=== PATIENT | female | born 1995 | race Caucasian/White ===

== ENCOUNTER 2022-10-21 08:00 | Outpatient (CLI) | payer OTHER ==
[2022-10-21 15:35] LABS: BILIRUBIN,URINE NEGATIVE (NEGATIVE); GLUCOSE, URINE (UA) NEGATIVE (NEGATIVE); KETONES,URINE (UA) 15 mg/dL (NEGATIVE); LEUKOCYTE ESTERASE, URINE NEGATIVE (NEGATIVE); NITRITE,URINE NEGATIVE (NEGATIVE); OCCULT BLOOD,URINE NEGATIVE (NEGATIVE); PH,URINE 7.5 PH (5.0-7.5); PROTEIN,URINE NEGATIVE (NEGATIVE); UROBILINOGEN,URINE 0.2 (NORMAL) E.U./dL (NORMAL)
[2022-10-21 15:37] LABS: CLARITY,URINE HAZY (CLEAR)
[2022-10-21 15:45] LABS: RBC,URINE 0-5 /HPF (0-5); SQUAMOUS EPITHELIAL CELL,UR FEW Squamous (<= Few); WBC,URINE 0-3 /HPF (0-5)
[2022-10-21 15:46] LABS: AMORPHOUS SEDIMENT,UR Moderate /LPF; BACTERIA,URINE Moderate /HPF (None Seen)
== END 2022-10-21 23:59 | disposition home or self-care (01) ==
LOC: LAB 08:00
PROVIDERS: ATTEND Obstetrics & Gynecology
DX: Z34.90 Encounter for supervision of normal pregnancy, unspecified, unspecified trimester (principal)
CPT/HCPCS: 81001; 87086

== ENCOUNTER 2022-11-08 15:18 | Outpatient (CLI) | payer OTHER ==
[2022-11-08 16:07] LABS: BASOPHILS # (AUTO) 0.1 10^3/uL (0.0-0.1); BASOPHILS % (AUTO) 0.4 %; EOSINOPHILS # (AUTO) 0.1 10^3/uL (0.0-0.7); EOSINOPHILS % (AUTO) 0.9 %; HCT - HEMATOCRIT 36.3 % (37.0-47.0); HGB - HEMOGLOBIN 12.4 g/dL (12.0-16.0); LYMPHOCYTES # (AUTO) 2.3 10^3/uL (1.5-3.5); LYMPHOCYTES % (AUTO) 16.8 %; MEAN CORPUSCULAR HEMOGLOBIN 29.9 pg (27.0-31.0); MEAN CORPUSCULAR HGB CONC 34.2 g/dL (32.0-36.0); MEAN CORPUSCULAR VOLUME 87.5 fL (81.0-99.0); MEAN PLATELET VOLUME 10.2 fL (7.9-10.8); MONOCYTES # (AUTO) 0.9 10^3/uL (0.0-1.0); MONOCYTES % (AUTO) 6.7 %; NEUTROPHILS # (AUTO) 10.3 10^3/uL (1.5-6.6); NEUTROPHILS % (AUTO) 74.8 %; PLT - PLATELET COUNT 275 10^3/uL (130-450); RED BLOOD COUNT 4.15 10^6/uL (4.20-5.40); RED CELL DISTRIBUTION WIDTH 12.6 % (12.0-15.0); WHITE BLOOD COUNT 13.8 x10^3/uL (4.8-10.8)
[2022-11-10 04:09] LABS: HBsAG SCREEN Negative (Negative)
[2022-11-10 05:13] LABS: HCV AB Non Reactive (Non Reactive); HIV SCREEN 4TH GENERATION Non Reactive (Non Reactive)
[2022-11-10 08:10] LABS: RPR Non Reactive (Non Reactive)
[2022-11-10 11:11] LABS: VARICELLA-ZOSTER AB IGG 1281 index (Immune >165)
== END 2022-11-08 15:19 | disposition home or self-care (01) ==
LOC: LAB 15:18
PROVIDERS: ATTEND Nurse Practitioner Obstetrics & Gynecology
DX: Z36.89 Encounter for other specified antenatal screening (principal)
CPT/HCPCS: 36415; 85025; 86592; 86762; 86787; 86803; 86850; 86900; 86901; 87340; 87389

== ENCOUNTER 2022-11-24 14:28 | Outpatient (CLI) | payer OTHER | END 2022-11-24 14:29 | disposition home or self-care (01) | LOC: LAB 14:28 | PROVIDERS: ATTEND Nurse Practitioner Obstetrics & Gynecology | DX: Z01.89 Encounter for other specified special examinations (principal) | CPT/HCPCS: 36415 ==

== ENCOUNTER 2022-12-17 15:38 | Outpatient (CLI) | payer OTHER | END 2022-12-17 15:39 | disposition home or self-care (01) | LOC: LAB 15:38 | PROVIDERS: ATTEND Nurse Practitioner Obstetrics & Gynecology | DX: Z13.79 Encounter for other screening for genetic and chromosomal anomalies (principal) | CPT/HCPCS: 36415; 82105 ==

== ENCOUNTER 2023-01-19 15:59 | Outpatient (CLI) | payer OTHER ==
--- NOTE | 2023-01-20 13:11 | Ultrasound Report ---
PROCEDURE: OB Detailed Eval INDICATIONS: SUPERVISION OF OUTSIDE/PRIOR DATING DATA: Last menstrual period (LMP): 08/26/2022. LMP-based estimated date of delivery (HELENE): 06/02/2023. First dating scan (date and location): 11/03/2022. Estimated date of delivery (HELENE) from first dating scan: 06/07/2022. The below data below was generated using the working HELENE of 06/02/2023 TECHNIQUE: Real-time scanning was performed of the fetus, with image documentation and biometric measurements. Endovaginal scanning: Not performed COMPARISON: None. FINDINGS: General: A single living intrauterine gestation is present. Presentation: Vertex Placenta: Placental position is anterior, without previa. Amniotic fluid index: 15.8 cm, within normal limits for gestational age. heart rate: 133 beats per minute. Maternal cervical canal: 3.8 cm long; normal length is 2.5 cm or more. biometrics: Biparietal diameter: 4.6 cm 20 weeks 0 days Head circumference: 17.5 cm 20 weeks 0 days Abdominal circumference: 15.7 cm 20 weeks 6 days Femur length: 3.2 cm 20 weeks 0 days Estimated gestational age from initial scan: 20 weeks 6 days Composite gestational age from present scan: 20 weeks 1 day Estimated weight and percentile: 354 g, 24th percentile Measurement variability in biometric dating: +/- 10 days from 12-20 weeks gestation, +/- 2 weeks from 20-30 weeks gestation, +/- 3 weeks at 30 weeks gestation or later. Anatomic survey: Neuro: Ventricles are normal at less than 10 mm. Cisterna magna is normal at 3-11 mm. Cerebellum i s normal in size and morphology. Nuchal skin fold: Normal at less than 6 mm between 14 and 20 weeks gestational age. Face: Nose and lips, facial profile are normal. Spine: No evidence for spina bifida. Heart: 4-chambered heart is present, with normal ventricular outflow tracts. Diaphragm: Diaphragm is intact. Stomach: Left-sided stomach is present. Kidneys: No hydronephrosis. Normal is less than 5 mm in 2nd trimester, less than 7 mm in 3rd trimester. Cord: 3 vessel cord has orthotopic insertion. Bladder: Normal in size. Extremities: All 4 extremities are visualized. IMPRESSION: 1. Single living intrauterine . 2. Normal second trimester anatomy survey. No anatomic anomalies detected at this time. Reviewed by: Pacheco Lu MD on 01/20/2023 1:10 PM PDT Approved by: Pacheco Lu MD on 01/20/2023 1:10 PM PDT Station ID: [id number]
== END 2023-01-19 16:00 | disposition home or self-care (01) ==
LOC: DI 15:59
PROVIDERS: ATTEND Nurse Practitioner Obstetrics & Gynecology
DX: Z34.02 Encounter for supervision of normal first pregnancy, second trimester (principal); Z36.89 Encounter for other specified antenatal screening

== ENCOUNTER 2023-02-06 14:08 | Outpatient (CLI) | payer OTHER | END 2023-02-06 14:09 | disposition home or self-care (01) | LOC: LAB 14:08 | PROVIDERS: ATTEND Nurse Practitioner Obstetrics & Gynecology | DX: R30.0 Dysuria (principal) | CPT/HCPCS: 87086 ==

== ENCOUNTER 2023-02-21 16:34 | Outpatient (CLI) | payer OTHER ==
[2023-02-21 17:57] LABS: BASOPHILS % (AUTO) 0.3 %; EOSINOPHILS # (AUTO) 0.1 10^3/uL (0.0-0.7); EOSINOPHILS % (AUTO) 0.7 %; HCT - HEMATOCRIT 33.5 % (37.0-47.0); HGB - HEMOGLOBIN 11.2 g/dL (12.0-16.0); LYMPHOCYTES # (AUTO) 2.2 10^3/uL (1.5-3.5); LYMPHOCYTES % (AUTO) 16.2 %; MEAN CORPUSCULAR HEMOGLOBIN 30.1 pg (27.0-31.0); MEAN CORPUSCULAR HGB CONC 33.4 g/dL (32.0-36.0); MEAN CORPUSCULAR VOLUME 90.1 fL (81.0-99.0); MEAN PLATELET VOLUME 10.3 fL (7.9-10.8); MONOCYTES # (AUTO) 0.9 10^3/uL (0.0-1.0); MONOCYTES % (AUTO) 6.8 %; NEUTROPHILS # (AUTO) 10.1 10^3/uL (1.5-6.6); PLT - PLATELET COUNT 242 10^3/uL (130-450); RED BLOOD COUNT 3.72 10^6/uL (4.20-5.40); RED CELL DISTRIBUTION WIDTH 12.9 % (12.0-15.0); WHITE BLOOD COUNT 13.4 x10^3/uL (4.8-10.8)
== END 2023-02-21 16:35 | disposition home or self-care (01) ==
LOC: LAB 16:34
PROVIDERS: ATTEND Nurse Practitioner Obstetrics & Gynecology
DX: Z36.9 Encounter for antenatal screening, unspecified (principal)
CPT/HCPCS: 36415; 82950; 85025

== ENCOUNTER 2023-06-08 22:17 | Inpatient (IN) | payer OTHER ==
[2023-06-08] MEDS ORDERED: NIFEdipine 10 MG CAPSULE PO PRN (22:48)
[2023-06-08] MEDS ORDERED: METHYLERGONOVINE 0.2 MG/ML VIAL IM PRN (22:48)
[2023-06-08] MEDS ORDERED: CARBOPROST TROMETHAMINE 250 MCG/ML AMP IM PRN (22:48)
[2023-06-08] MEDS ORDERED: miSOPROStoL 200 MCG TABLET PR PRN (22:48)
[2023-06-08] MEDS ORDERED: LACTATED RINGERS 1,000 ML IV PRN (22:48)
[2023-06-08] MEDS ORDERED: fentaNYL 100 MCG/2 ML VIAL IVP PRN (22:48)
[2023-06-08] MEDS ORDERED: lidocaine 1% 20 ML MDV ID PRN (22:48)
[2023-06-08] MEDS ORDERED: OXYTOCIN 10 UNIT/ML VIAL IM PRN (22:48)
[2023-06-08] MEDS ORDERED: TRANEXAMIC ACID IN NACL 1,000 MG/100 ML BAG IV PRN (22:48)
[2023-06-08] MEDS ORDERED: SODIUM CHLORIDE FLUSH 0.9% 10 ML SYRINGE IVP PRN (22:48)
[2023-06-08] MEDS ORDERED: miSOPROStoL 200 MCG TABLET BC PRN (22:48)
[2023-06-08] MEDS ORDERED: LABETALOL 20 MG/4 ML SYRINGE IVP PRN ×3 (22:48)
[2023-06-08] MEDS ORDERED: hydrALAZINE INJ 20 MG/ML VIAL IVP PRN ×2 (22:48)
[2023-06-08] MEDS ORDERED: OXYTOCIN/SODIUM CHLORIDE 500 ML IV PRN (22:48)
[2023-06-08] MEDS ORDERED: SODIUM CHLORIDE FLUSH 0.9% 10 ML SYRINGE IVP SCH (23:00)
[2023-06-09 00:31] LABS: BASOPHILS # (AUTO) 0.1 10^3/uL (0.0-0.1); BASOPHILS % (AUTO) 0.4 %; EOSINOPHILS # (AUTO) 0.1 10^3/uL (0.0-0.7); EOSINOPHILS % (AUTO) 0.4 %; HCT - HEMATOCRIT 34.9 % (37.0-47.0); HGB - HEMOGLOBIN 11.7 g/dL (12.0-16.0); LYMPHOCYTES # (AUTO) 3.2 10^3/uL (1.5-3.5); LYMPHOCYTES % (AUTO) 22.7 %; MEAN CORPUSCULAR HGB CONC 33.5 g/dL (32.0-36.0); MEAN CORPUSCULAR VOLUME 89.5 fL (81.0-99.0); MEAN PLATELET VOLUME 10.8 fL (7.9-10.8); MONOCYTES # (AUTO) 1.4 10^3/uL (0.0-1.0); MONOCYTES % (AUTO) 9.6 %; NEUTROPHILS # (AUTO) 9.4 10^3/uL (1.5-6.6); NEUTROPHILS % (AUTO) 66.4 %; PLT - PLATELET COUNT 252 10^3/uL (130-450); RED CELL DISTRIBUTION WIDTH 13.2 % (12.0-15.0); WHITE BLOOD COUNT 14.2 x10^3/uL (4.8-10.8)
[2023-06-09] MEDS ORDERED: miSOPROStoL 100 MCG TABLET BC SCH (07:00)
--- NOTE | 2023-06-09 08:11 | HISTORY & PHYSICAL EXAMINATION ---
Admit History - Visit Reason Visit Reason: Membranes rupture - : 1 Parity: 0 Premature: 0 Ectopic: 0 : 0 Care: positive: [facility] Risk/History: positive: None Complications This : positive: None Smoking Status: Never smoker - Mother's Labs Mother's Blood Type: positive: O Mother's RH: positive: Positive GBS: positive: Group B Step Negative Rubella Status: positive: Immune - HPI Diagnosis/Indication for NST: Post-dates gestation Current [facility] 06/02/23 Gestation 41 Weeks and 0 Days 1 Vital Signs Temperature 37.3 C 06/08/23 22:20 Temperature 37.3 C 06/08/23 22:32 Heart Rate 68 06/08/23 22:32 Respiratory Rate 16 06/08/23 22:32 Blood Pressure 106/57 L 06/08/23 22:32 O2 Saturation If not protocol: Oxygen Flow, liters/minute - NST Procedure FHR baseline 120s, moderate variability, + accels, no decels Contractations palpate mild occasionally with soft resting tone Meds/Allgy - Allergies Allergies/Adverse Reactions: Allergies Allergy/AdvReac Type Severity Reaction Status Date / Time No Known Drug Allergies Allergy Verified 06/09/23 07:02 Review of Systems - Constitutional Constitutional: denies: Fatigue, Fever, Chills, Malaise - Eyes Eyes: denies: Blurred vision, Spots in vision, Dipolpia - Cardiovascular Cariovascular: denies: Irregular heart rate, Palpitations, Chest pain, Edema - Respiratory Respiratory: denies: Cough, Wheezing, SOB at rest - Gastrointestinal Gastrointestinal: denies: Constipation, Diarrhea, Nausea, Vomiting - Genitourinary Genitourinary: denies: Dysuria - Integumentary Integumentary: denies: Rash, Pruritis - Neurological Neurological: denies: Headache - Psychiatric Psychiatric: denies: Depression, Anxiety - All Other Systems All Other Systems: reports: Reviewed and negative Physical - Abdominal Exam Vital Signs: Temp Pulse Resp BP Pulse Ox O2 Flow Rate 37.3 C 68 16 106/57 L 06/08/23 22:32 06/08/23 22:32 06/08/23 22:32 06/08/23 22:32 Contraction Frequency (min/apart): occasional Contraction Intensity: positive: Mild Uterine Resting Tone: positive: Soft - Monitoring Heart Rate Baseline: 120 Strip Review: positive: Category I - Presentation Presentation: positive: Vertex - Vaginal Exam Membranes: positive: Membranes ruptured Dilation (in cm): 1 Effacement (%): 50 Station: positive: -1 Cervical Position: positive: Posterior - Speculum Exam Speculum Exam Performed: positive: No Findings: positive: Gross leak Plan for Labor - Plan For Labor I expect patient to be DC'd or transferred within 96 hours.: Yes Plan for Labor: HPI: This 28yo @ 41.0wks gestation by LMP c/w 9.6wk U/S presents to [facility] with vaginal leakage of fluid which occurred at her routine visit last evening at 1835 and was initially noted to be a large amount of clear fluid. After leaving her office visit she reports the fluid color changed to yellow with possibly a slight green discoloration which was then followed by a darker green color. She denies vaginal bleeding and reports +FM. She has experienced occasional cramping but denies contractions. She has been a patient of [facility] for the duration of her which has remained uncomplicated. She is supported by her Davi today. 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 SAB x0. Last pap 06/2022 WNL, HPV negative. No hx abnormal. Denies history of gonorrhea, chlamydia, genital herpes, oral herpes or any other STI. Sexual partner does NOT have HSV (oral or genital). Medical Hx: no significant Surgical Hx: none Social Hx: Monogamous with male partner. Stopped drinking alcohol due to . Denies current use of tobacco, marijuana or other recreational drugs. Reports that she is safe in current relationship. Family Hx: Denies family history of congenital anomalies, Cystic Fibrosis or chromosomal abnormalities. Allergies: NKDA Medications: PNV course: O positive, antibody negative Rubella immune, varicella immune RPR non-reactive, HIV non-reactive Hep B negative, Hep C negative Initial U/S @ 9.6wks c/w LMP dating NIPS negative MsAFP negative FAS WNL. Anterior placenta, no previa. Size c/w dating (EFW 24%tile). 3VC. Glucola 128 RSV 04/2023 Influenza 04/2023 Tdap 04/2023 COVID 12/2022 booster GBS negative Physical exam: Normocephalic, atraumatic Heart RRR w/o M/G/R Lungs CTAB Abdomen gravide, soft, nontender EFW 3400g FHR baseline 120s, moderate variability, + accels, no decels Contractions palpate mild occasionally with soft resting tone SVE secondary to absence of contractions and pt request for no intervention at this time Bilateral LE's no edema Mood is good Plan: Admit to [facility] for expectant management x 12 hours post-rupture. Continuous monitoring. Jacuzzi PRN. Nitrous oxide PRN. Epidural per maternal request. Anticipate .
--- NOTE | 2023-06-09 08:23 | PROVIDER PROGRESS NOTE ---
Labor Progress Note - Uterine Monitoring Uterine Monitoring Mode: positive: External toco Contraction Frequency (min/apart): occasional Contraction Intensity: positive: Mild Uterine Resting Tone: positive: Soft - Monitoring Monitor Mode: positive: External ultrasound Heart Rate Baseline: 120 Heart Rate Variability: positive: Moderate (6-25 bmp) Accelerations: positive: Present, 15x15 Decelerations: positive: None Strip Review: positive: Category I - Vaginal Exam Dilation (in cm): 1 Effacement (%): 50 Station: -1 Cervical Position: Posterior - Labor Progress Note Labor Progress Note/Additional Text: S: Patient was able to get some rest last night. She continues to leak green am niotic fluid. She denies vaginal bleeding. She denies contractions. She has felt occasional cramping but otherwise has not felt uncomfortable. Her Davi and her mom are both supportive at the bedside. O: FHR baseline 120s, moderate variability, + accels, no decels Contractions palpate mild occasionally/rare with soft resting tone SVE 1/50/-1 and vertex SROM x 12.5hrs A: 28yo @ 41.0wks gestation by LMP c/w 9.6wk U/S Postdates Meconium stained amniotic fluid GBS negative FHR Category I Plan: Initial 50mcg BC misoprostol for pre-induction cervical ripening x 2 doses ma ximum with initiation of pitocin at that time. Continuous monitoring Jacuzzi PRN, nitrous oxide PRN. Epidural per maternal request. Anticipate . Reviewed plan of care with patient, her , and her mom at the bedside who are in agreement with the plan and deny further questions or concerns at this time.
[2023-06-09] MEDS ORDERED: OXYTOCIN/SODIUM CHLORIDE 500 ML IV SCH (13:16)
--- NOTE | 2023-06-09 13:23 | PROVIDER PROGRESS NOTE ---
Labor Progress Note - Uterine Monitoring Uterine Monitoring Mode: positive: External toco Contraction Frequency (min/apart): 4-6 Contraction Intensity: positive: Mild Uterine Resting Tone: positive: Soft - Monitoring Monitor Mode: positive: External ultrasound Heart Rate Baseline: 130 Heart Rate Variability: positive: Moderate (6-25 bmp) Accelerations: positive: Present, 15x15 Decelerations: positive: None Strip Review: positive: Category I - Labor Progress Note Labor Progress Note/Additional Text: S: Patient has been feeling well and she denies noting any contractions that are appreciated via tocometry. She is feeling anxious about the continued leakage of green amniotic fluid and feels like she is ready for initiation of pitocin at this time rather than administered a second dose of misoprostol for cervical ripening. Her and family are supportive at the bedside. O: FHR baseline 130s, moderate variability, + accels, no decels Contractions palpate mild every 4-6 minutes with soft resting tone SVE deferred secondary to absence of painful contractions SROM x 19 hours A: 28yo @ 41.0wks gestation by LMP c/w 9.6wk U/S PROM Postdates Meconium stained amniotic fluid FHR Category I GBS negative P: Initiate pitocin via IV for induction of labor secondary to PROM. Continuous monitoring. Encouraged ambulation and position changes. Jacuzzi PRN. Nitrous oxide PRN. Epidural per maternal request. Anticipate .
[2023-06-09] MEDS: LACTATED RINGERS 1,000 ML IV SCH (16:16)
--- NOTE | 2023-06-09 17:04 | PROVIDER PROGRESS NOTE ---
Labor Progress Note - Uterine Monitoring Uterine Monitoring Mode: positive: External toco Contraction Frequency (min/apart): 2-3 Contraction Intensity: positive: Mild Uterine Resting Tone: positive: Soft - Monitoring Monitor Mode: positive: External ultrasound Heart Rate Baseline: 120 Heart Rate Variability: positive: Moderate (6-25 bmp) Accelerations: positive: Present, 15x15 Decelerations: positive: None Strip Review: positive: Category I - Vaginal Exam Dilation (in cm): 1 Effacement (%): 50 Station: -1 Cervical Position: Posterior - Labor Progress Note Labor Progress Note/Additional Text: S: Patient standing at the bedside. She has been doing her best to remain active throughout the day today. She reports continued leakage of meconium stained amniotic fluid. She is not feeling any of her contractions. She reports occasional cramping that is brief. She denies vaginal bleeding. Her family is supportive at the bedside. O: FHR baseline 120s, moderate variability, + accels, no decels Contractions palpate mild every 2-3 minutes with soft resting tone SVE 1/50/-1, posterior, medium. Vertex. SROM x 22.5h hrs Pitocin @ 8mU/mL Afebrile A: 28yo @ 41.0wks gestation by LMP c/w 9.6wk U/S Postdates PROM Meconium stained amniotic fluid GBS negative FHR Category I P: Continuous monitoring. Continue pitocin for induction of labor with titration per protocol. Encouraged ambulation and position changes. Jacuzzi PRN. Nitrous oxide PRN. Epidural per maternal request. Anticipate .
[2023-06-09] MEDS ORDERED: ROPIVACAINE 0.2% 200 MG/100 ML BAG EP ONE (22:49)
[2023-06-09] MEDS ORDERED: ROPIVACAINE 0.2% 200 MG/100 ML BAG EP PRN (23:22)
[2023-06-09] MEDS ORDERED: NALOXONE 0.4 MG/ML VIAL IVP PRN (23:22)
[2023-06-09] MEDS ORDERED: ePHEDrine 50 MG/ML VIAL IVP PRN (23:22)
--- NOTE | 2023-06-09 23:22 | ANESTHESIA ---
Pre-Anesthesia VS, & Labs - Diagnosis active labor - Procedure vaginal delivery Vital Signs: Temp Pulse Resp BP Pulse Ox O2 Flow Rate 37.3 C 68 16 106/57 L 06/08/23 22:32 06/08/23 22:32 06/08/23 22:32 06/08/23 22:32 Height: 5 ft 0.5 in Weight (kg): 59.786 kg Body Mass Index: 25.3 BMI Classification: Overweight - NPO Last Fluid Intake: clear liquids - Is Patient ?: Yes - Lab Results Current Lab Results: Laboratory Tests 06/09/23 00:18: WBC 14.2 H, RBC 3.90 L, Hgb 11.7 L, Hct 34.9 L, MCV 89.5, MCH 30.0, MCHC 33.5, RDW 13.2, Plt Count 252, MPV 10.8, Neut # (Auto) 9.4 H, Lymph # (Auto) 3.2, [place] # (Auto) 1.4 H, Eos # (Auto) 0.1, Baso # (Auto) 0.1, Absolute Nucleated RBC 0.00, Nucleated RBC % 0.0 06/09/23 00:18: Blood Type O POSITIVE, Antibody Screen NEGATIVE Lab results reviewed: Yes Fish Bones: 06/09/23 00:18 Home Medications and Allergies Active Medications Carboprost Tromethamine (Carboprost Tromethamine 250 Mcg/Ml Amp) 250 mcg IM .ONCE PRN PRN Reason: Hemorrhage Fentanyl (Fentanyl 100 Mcg/2 Ml Vial) 50 mcg IVP Q1H PRN PRN Reason: Severe Pain (score 7-10) Hydralazine HCl (Hydralazine Inj 20 Mg/Ml Vial) 5 - 10 mg IVP Q20M PRN; Protocol PRN Reason: SBP> or= 160 OR DBP> or= 110 Hydralazine HCl (Hydralazine Inj 20 Mg/Ml Vial) 10 mg IVP .ONCE PRN; Protocol PRN Reason: SBP> or= 160 OR DBP> or= 110 Lactated Ringer's (Lr) 500 mls @ 999 mls/hr IV PRN PRN PRN Reason: NEEDED PER PROVIDER ORDERS Last Admin: 06/09/23 14:42 Dose: 125 mls/hr Oxytocin/Sodium Chloride (Pitocin/Sodium Chloride) 500 mls @ 999 mls/hr IV PRN PRN; Protocol PRN Reason: POST- HEMORR PREVENTION Tranexamic Acid (Tranexamic 1,000 Mg/100ml-Nacl) 1,000 mg in 100 mls @ 600 mls/hr IV Q30M PRN PRN Reason: EBL >1200mL and within 3hr Oxytocin/Sodium Chloride (Pitocin/Sodium Chloride) 500 mls @ 2 mls/hr IV TITR SAMANTA; Protocol Last Titration: 06/09/23 17:47 Dose: 12 milliunit/min, 12 mls/hr Lactated Ringer's (Lr) 1,000 mls @ 125 mls/hr IV .Q8H [facility] Last Admin: 06/09/23 16:16 Dose: Not Given Labetalol HCl (Labetalol 20 Mg/4 Ml Syringe) 20 - 80 mg IVP Q10M PRN; Protocol PRN Reason: SBP> or= 160 OR DBP> or= 110 Labetalol HCl (Labetalol 20 Mg/4 Ml Syringe) 20 mg IVP .ONCE PRN; Protocol PRN Reason: SBP> or= 160 OR DBP> or= 110 Labetalol HCl (Labetalol 20 Mg/4 Ml Syringe) 20 - 40 mg IVP Q10M PRN; Protocol PRN Reason: SBP> or= 160 OR DBP> or= 110 Lidocaine HCl (Lidocaine 1% 20 Ml Mdv) 20 ml ID .ONCE PRN PRN Reason: PERINEAL REPAIR Stop: 06/11/23 22:49 Methylergonovine Maleate (Methylergonovine 0.2 Mg/Ml Vial) 0.2 mg IM .ONCE PRN PRN Reason: Hemorrhage Misoprostol (Misoprostol 200 Mcg Tablet) 600 mcg BC .ONCE PRN PRN Reason: Hemorrhage Misoprostol (Misoprostol 200 Mcg Tablet) 800 mcg [place] .ONCE PRN PRN Reason: Hemorrhage Misoprostol (Misoprostol 100 Mcg Tablet) 50 mcg BC Q4H [facility] Last Admin: 06/09/23 08:14 Dose: 50 mcg Nifedipine (Nifedipine 10 Mg Capsule) 10 - 20 mg PO Q20M PRN; Protocol PRN Reason: SBP> or= 160 OR DBP> or= 110 Oxytocin (Oxytocin 10 Unit/Ml Vial) 10 unit IM .ONCE PRN PRN Reason: Step One if no IV access. Sodium Chloride (Sodium Chloride Flush 0.9% 10 Ml Syringe) 10 ml IVP PRN PRN PRN Reason: NEEDED PER PROVIDER ORDERS Sodium Chloride (Sodium Chloride Flush 0.9% 10 Ml Syringe) 10 ml IVP Q8H SAMANTA Last Admin: 06/09/23 14:41 Dose: 10 ml Allergies/Adverse Reactions: Allergies Allergy/AdvReac Type Severity Reaction Status Date / Time No Known Drug Allergies Allergy Verified 06/09/23 07:02 Anes History & Medical History - Anesthetic History Family history of Anesthesia Complications: Denies Family history of Malignant Hyperthermia: Denies - Medical History Cardiovascular: reports: None Pulmonary: reports: None Gastrointestinal: reports: None Urinary: reports: None Neuro: reports: None Musculoskeletal: reports: None Endocrine/Autoimmune: reports: None Blood Disorders: reports: None Skin: reports: None Smoking Status: Never smoker Psychosocial: reports: No issues indicated History of Cancer?: No - Obstetrical History : 1 Parity: 0 Events: reports: Prolonged rupture membrane Complications: reports: None Exam General: Alert, Oriented x3, Cooperative, No acute distress Dental: WNL Mouth Openin Fingerbreadth Neck Mobility: Normal Mallampati classification: II Thyromental Distance: 4-6 cm Mental/Cognitive Status: Alert/Oriented X3, Normal for patient Plan Anesthesia Type: Epidural Consent for Procedure(s) Verified and Reviewed: Yes Code Status: Attempt Resuscitation ASA classification: 2-Mild systemic disease Is this case an emergency?: No
--- NOTE | 2023-06-10 01:21 | PROVIDER PROGRESS NOTE ---
Labor Progress Note - Uterine Monitoring Uterine Monitoring Mode: positive: IUPC Contraction Frequency (min/apart): 2 Contraction Intensity: positive: Moderate Uterine Resting Tone: positive: Soft - Monitoring Monitor Mode: positive: External ultrasound Heart Rate Baseline: 120 Heart Rate Variability: positive: Moderate (6-25 bmp) Accelerations: positive: Present, 15x15 Decelerations: positive: None Strip Review: positive: Category I - Vaginal Exam Dilation (in cm): 4 Effacement (%): 90 Station: -1 Cervical Position: Midposition - Labor Progress Note Labor Progress Note/Additional Text: S: Patient comfortable with her epidural. She strongly desires to sleep and is feeling exhausted. Her is supportive at the bedside. O: FHR baseline 120s, moderate variability, + accels, no decels Contractions palpate moderate every 2 minutes with soft resting tone Secondary to uterine tachysystole an IUPC was placed SVE 4/90/-1. Vertex. Pitocin @ 12mU/mL SROM x 31 hours A: 28yo @ 41.1wks gestation by LMP c/w 10 wk U/S Active labor Postdates Prolonged rupture of membranes Meconium stained amniotic fluid GBS negative FHR Category I P: Continue pitocin induction of labor with titration per protocol. Continuous monitoring. Maintain IUPC to track contractions and use to appropriately titrate pitocin per protocol to achieve adequate contractions. Encouraged rotation in bed on peanut ball. Maintain epidural for pain management. Secondary to increased risk of hemorrhage due to prolonged pitocin use and prolonged rupture of membranes, she has been type and crossmatched x 2 units. Anticipate .
[2023-06-10] MEDS: LACTATED RINGERS 1,000 ML IV SCH (07:09)
[2023-06-10] MEDS ORDERED: HYDROCORTISONE 1% CREAM 28 GM TUBE PR PRN (12:34)
[2023-06-10] MEDS ORDERED: WITCH HAZEL/GLYCERIN 1 PAD TOP PRN (12:34)
--- NOTE | 2023-06-10 12:38 | DELIVERY NOTE ---
Delivery Note - Labor Labor: positive: Induced by oxytocin - Infant Delivery Method Delivery Method: positive: Spontaneous vaginal delivery - Cervical Ripening Method Cervical Ripening Method: positive: Misoprostil - Presentation Presentation: positive: Vertex, VIRIDIANA - left occiput anterior - Nuchal Cord Nuchal Cord: positive: None - Amniotic Fluid Description Amniotic Fluid Description: positive: Moderate meconium - Episiotomy Type Episiotomy Type: positive: None - Laceration Laceration: positive: None - Delivery Outcome Delivery Outcome: positive: Livebirth - : positive: Placed in direct skin contact with mother, Stimulated, Warmed, [place] used - Cord Cord: positive: 3 vessels - Placenta Placenta: positive: Intact, Spontaneous - Estimated Blood Loss Estimated Blood Loss (in cc): 200 - Post Delivery Events Post Delivery Events: positive: No post delivery events - Delivery Comments (Free Text/Narrative) Delivery Comments (Free Text/Narrative): Labor: This 28yo @ 41.1wks gestation by LMP c/w 10wk U/S presented to [facility] with c/o vaginal leakage of yellow/green fluid on 06/08/2023 @ 1835. She denies contractions or vaginal bleeding and reports +FM. Cervix was 1/50/-2 and vertex with grossly ruptured membranes. She received 1 dose of 50mcg BC misoprostol for pre-induction cervical ripening. Pitocin was initiated for induction of labor with titration per protocol for a maximum infusion rate of 19mU/mL and IUPC monitoring. Epiduarl placed per maternal request. Patient made slow but steady progress to c/c/+1 @ 0902 with onset of active pushing at 0926. : Normal SVB of viable female infant on 06/10/2023 @ 1131. No nuchal cord. The was placed on maternal abdomen, stimulated, dried, and placed skin t o skin. 's were 8/9 at 1 and 5 minutes respectively. Pitocin administered via IV for hemostasis. The umbilical cord was allowed to stop pulsating at which time it was doubly clamped by CNM and cut by FOB. 3VC. Cord blood was obtained. Fundal massage and gentle cord traction applied for active management of the third stage. Placenta delivered spontaneously and intact at 1136. EBL 200mL. Fourth stage: Uterine fundus firm and there is no excessive bleeding. The perineum, vagina, and cervix were inspected and found to be intact. initiated. Family bonding well. Both mother and baby were left in stable condition.
[2023-06-10] MEDS: IBUPROFEN 800 MG TABLET PO SCH ×2 (14:20→20:52)
[2023-06-10] MEDS: ACETAMINOPHEN 500 MG TABLET PO SCH ×2 (15:08→23:18)
[2023-06-10] MEDS: DOCUSATE SODIUM 100 MG CAPSULE PO SCH (23:13)
[2023-06-11] MEDS: IBUPROFEN 800 MG TABLET PO SCH ×3 (03:54→21:52)
[2023-06-11] MEDS: ACETAMINOPHEN 500 MG TABLET PO SCH ×2 (10:35→19:39)
--- NOTE | 2023-06-11 13:04 | PROVIDER PROGRESS NOTE ---
Subjective - Subjective Subjective: Last night she had a brief syncopal episode when she was up to the bathroom. She reports a hx of syncopal episodes with blood draws. She was moved back to the bed and her vital signs were WNL. Her bleeding was and has remained WNL since delivery. She has not had additional episodes since that time. She initially had difficulty with urination and required straight catheterization which yielded 1300cc of urine. She was able to void spontaneously at the bedside commode several times throughout the night without pain. The patient states she feels like she is not completely emptying her bladder and a bladder scan revealed 1400cc of urine. She is unable to void. We discussed straight catherization vs indwelling catheter. Pt states she desires to get up and shower and attempt to urinate while showering. If she is unable to shower she desires an indwelling catheter and we discussed this would stay in place x 12 hours. Pt and her partner are both in agreement with that plan. Objective - Vital Signs/Intake & Output Vital Signs: Vital Signs x48h Pulse Resp BP Pulse Ox 06/11/23 09:15 89 06/11/23 08:30 132 H 20 127/75 100 Intake & Output: Intake & Output 06/08/23 06/09/23 06/10/23 06/11/23 23:59 23:59 23:59 23:59 Intake Total 19.366 2030.634 1450 Output Total 2825 100 Balance 19.366 -911.810 9670 - Lab Results Fish Bones: 06/09/23 00:18
--- NOTE | 2023-06-11 13:06 | PROVIDER PROGRESS NOTE ---
Subjective - Subjective Subjective: S: without difficulty and bonding well with her baby. Her bleeding is decreased and is light. Her pain is well controlled with oral medications. O: Heart RRR w/o M/G/R, lungs CTAB, abodmen soft and nontender with fundus firm at U with deviation to the left. Perineum intact, light lochia rubra. Moderate but appropriate edema noted throughout vulva. Bilateral LE's no edema. Sapp urinary catheter placed easily A: 28yo -->P1 PPD#1 s/p TSVB viable female Urinary retention Perineum intact P: Urinary catheter to be removed in 12 hours. Continue routine care and medications. Evaluate for discharge home tomorrow. Objective - Vital Signs/Intake & Output Vital Signs: Vital Signs x48h Pulse Resp BP Pulse Ox 06/11/23 09:15 89 06/11/23 08:30 132 H 20 127/75 100 Intake & Output: Intake & Output 06/08/23 06/09/23 06/10/23 06/11/23 23:59 23:59 23:59 23:59 Intake Total 19.366 2030.634 1450 Output Total 2825 100 Balance 19.366 -905.104 2373 - Lab Results Fish Bones: 06/09/23 00:18
[2023-06-11] MEDS: DOCUSATE SODIUM 100 MG CAPSULE PO SCH (21:54)
[2023-06-12] MEDS: ACETAMINOPHEN 500 MG TABLET PO SCH (04:22)
[2023-06-12] MEDS: IBUPROFEN 800 MG TABLET PO SCH ×2 (04:22→10:10)
[2023-06-12 04:49] VITALS: O2SAT 97
[2023-06-12 07:29] VITALS: BP 127/96
[2023-06-12] MEDS: DOCUSATE SODIUM 100 MG CAPSULE PO SCH (10:10)
--- NOTE | 2023-06-12 11:40 | Discharge Plan ---
Discharge Plan Problem Reviewed?: Yes Disposition: Home, Self Care Condition: Good Diet: Regular Activity Restrictions: No Restrictions Shower Restrictions: No Driving Restrictions: No Weight Bearing: Full Weight Instruction Topics: Vaginal After, Breastfeed Holds, Nutrition , Self Care No Smoking: If you smoke, Please STOP! Call for help. Follow-up with: Marlena Currie CNM, ARNP [Provider Admit Priv/Credential] - 1 Week ( phone visit June 21 @ 2:45 with Marlena Currie CNM/EDNA)
--- NOTE | 2023-06-12 11:41 | DISCHARGE SUMMARY ---
Discharge Summary Condition at Discharge: Good Discharge Disposition: 01 Home, Self Care - HOSPITAL COURSE Hospital Course: Date of Admission: 06/08/2023 Date of Discharge: 06/12/2023 Diagnosis on Admission: 1. 28yo @ 41.0wks gestation by LMP c/w 9.6wk U/S 2. Postdates 3. Meconium stained amniotic fluid 4. GBS negative 5. FHR Category I Diagnosis on Discharge: 1. 28yo s/p TSVB viable female infant 2. Perineum intact 3. Urinary retention - resolved 4. Brief History: She is a patient of [facility] who presented on 06/08/2023 with c/o vaginal leakage of meconium stained amniotic fluid. She received 1 dose of 50mcg BC misoprostol for pre-induction cervical ripening followed by pitocin for induction of labor which was titrated per protocol for a maximum infusion rate of 19mU/mL. She mad slow but steady progress to spontaneously deliver a viable female on 06/10/2023 @ 1131 over intact perineum. Apgars were 8/9 at 1 and 5 minutes respectively. EBL 200mL. She had prolonged rupture of membranes x 41 hours but remained afebrile throughout her labor course. She had difficulty with complete emptying of her bladder initially after deliver and a urinary catheter was inserted and left in place x 12 hours. It as removed without difficulty and the patient has been urinating with complete bladder emptying since that time. She is without difficulty and she is bonding well with her baby. She is ambulating and tolerating a regular diet. Her pain is well controlled with oral medications. She will be discharged home today on day #2 with instructions to continue taking her vitamin while and to continue taking ibuprofen and tylenol over the counter as needed for pain management. She intends to follow up with myself at [facility] in 1 week or sooner if needed. She has been given precautions to call if she has any worsening fevers, chills, abdominal pain, increased vaginal bleeding or foul smelling vaginal lochia. Physical exam: Normocephalic, atraumatic. Heart RRR w/o M/G/R, lungs CTAB, abdomen soft and nontender with fundus firm at U-1, perineum intact, light lochia rubra. Bilateral LE's no edema. Mood is good. - ALLERGIES Allergies/Adverse Reactions: Allergies Allergy/AdvReac Type Severity Reaction Status Date / Time No Known Drug Allergies Allergy Verified 06/09/23 07:02 - LABS Result Diagrams: 06/09/23 00:18
--- NOTE | 2023-06-12 14:19 | Labor Flowsheet ---
Labor Flowsheet Datetime Report Generated by CPN: 06/12/2023 14:19 Datetime: 06/12/2023 07:21 VITAL SIGNS NBP Sys/Jaqueline/Mean (mmHg): 127 : 96 : 101 Pulse: 107 Datetime: 06/10/2023 13:43 Temperature (C): 36.5 Datetime: 06/10/2023 11:33 Stage of : Recovery Datetime: 06/10/2023 11:31 MEDICATIONS Pitocin (milliunits): Increased to @ (Annotations: 999) Datetime: 06/10/2023 11:30 Stage 2 Comments: delivered Datetime: 06/10/2023 11:15 Comments: decels with pushing, recovers between Datetime: 06/10/2023 10:30 LaborFlag: Labor Datetime: 06/10/2023 10:08 STAGE 2 Pushing: Coached on Pushing Pushing Position: Pushing with Contractions; Pushing Lithotomy Datetime: 06/10/2023 09:55 COMMUNICATION Communication: Provider at Bedside Communication Comments: Franky Tafoya LUMBER GRADER at bedside Datetime: 06/10/2023 09:30 Contraction Comments: pushing Datetime: 06/10/2023 09:20 SpO2 (%): 98 Datetime: 06/10/2023 09:06 Patient Position/Activity: Left Tilt Datetime: 06/10/2023 09:02 VAGINAL EXAM Dilatation (cm): 10.0 Effacement (%): 100 Station: 1 Exam by: Marlena Currie LUMBER GRADER Cervix, Consistency: Soft Cervix, Position: Midposition Provider Notified (Name): Marlena Rosey, LUMBER GRADER Notification Reason: Status Datetime: 06/10/2023 08:45 UTERINE ACTIVITY Monitor Mode: Internal Frequency (min): 2-2.5 Quality: Strong Duration (sec): 60-80 Pattern: Normal: <= 5 Contractions in 10 Minutes Resting Tone (Palpate): Relaxed Resting Tone IUP (mmHg): 20 Intensity IUP (mmHg): 30 David Units (mmHg): 40 Pitocin Checklist: At Least 1 Acceleration of 15 bpm x 15 Seconds in 30 Minutes or Adequate Variabi lity; No More than 1 Late Deceleration Occurred in Past 30 Minutes; No More than 2 Variable Decelerat ions > 60 Seconds in Duration and decreasing >60 bpm in 30 minutes; No More than 5 Uterine Contractio ns in 10 Minutes for any 20 Minute Interval; Uterus Palpates Soft between Contractions; IUPC Resting Tone less than 25 mmHg ASSESSMENT A Monitor Mode: External US FHR Baseline Rate : 150 Variability: Moderate 6-25 bpm Accelerations: 15X15 Decelerations: Variable Category: Category II Datetime: 06/10/2023 08:09 Patient Care Comments: throne position, feet dropped Datetime: 06/10/2023 07:30 MONTEVIDEO UNITS (Computed) Contractions in Ten Minutes: 5 IUPC Average Intensity: 30 IUPC Average Resting Tone: 0 David Units (mmHg): 150 Datetime: 06/10/2023 07:00 FHR Baseline Changes: No Baseline Change Datetime: 06/10/2023 06:33 Respirations: 14 PAIN Pain Scale: 0 Datetime: 06/10/2023 05:46 Monitor Interventions for UA: IUPC Inserted Datetime: 06/10/2023 04:39 Amniotic Fluid Color: Light Meconium Amniotic Fluid Amount: Large Amniotic Fluid Odor: None Vaginal Bleeding: None Hygiene: Brandy Care; Underpad Changed Datetime: 06/10/2023 04:05 Anesthesia Level Check: T10- Umbilicus Datetime: 06/10/2023 02:32 Monitor Interventions for FHR: Ultrasound Adjusted Datetime: 06/09/2023 23:54 I/O Interventions: Sapp Cath Inserted Datetime: 06/09/2023 23:46 Pain Type: Cramping Pain Relief Measures: Epidural Given Datetime: 06/09/2023 23:42 MATERNAL ASSESSMENT Level of Consciousness: Alert Headache: Denies Nausea/Vomiting: Denies RUQ Epigastric Pain: Denies Datetime: 06/09/2023 23:30 ANESTHESIA Anesthesia Plans: Epidural Epidural Positioning: Side Lying Datetime: 06/09/2023 23:17 Epidural Procedure Other: Pump Started Datetime: 06/09/2023 23:12 Epidural Procedure: Completed Datetime: 06/09/2023 22:56 PROCEDURE TIME OUT Procedure Verify: Correct Patient Identity; Correct Side and Site are Marked; Accurate Procedure Co nsent Form; Agreement on Procedure to be Done; Correct Patient Position; Addressed Need to Administer Antibiotics or Fluids for Irrigation; Safety Precautions Based on Patient History or Medication Use Datetime: 06/09/2023 22:35 Pain Coping: Requesting Pain Medication or Epidural Datetime: 06/09/2023 18:45 Oxygen Method: Room Air Datetime: 06/09/2023 11:27 Pain Assessment Comments: feels tightening 0/10 pain Datetime: 06/09/2023 08:44 Cervical Ripening Agents: Other Datetime: 06/09/2023 08:13 Temperature Route: Oral Datetime: 06/09/2023 07:47 PATIENT CARE IV/Blood Work: IV Started Datetime: 06/09/2023 06:41 Pain Presence: None/Denies Provider Reviewed Strip: Yes Strip Reviewed by: A Rosey Datetime: 06/09/2023 01:17 Breath Sounds, Left: Clear and Equal Breath Sounds, Right: Clear and Equal Datetime: 06/08/2023 23:53 Membranes Ruptured Date/Time: 06/08/2023 18:30 Membranes Rupture Method: Spontaneous
== END 2023-06-12 13:35 | disposition home or self-care (01) | DRG 807 ==
LOC: WFO 22:17 → FBP 22:19 → WFO 22:39 → FBP 22:40
PROVIDERS: ADMIT Nurse Practitioner Obstetrics & Gynecology; ATTEND Nurse Practitioner Obstetrics & Gynecology
PROC: 3E033VJ Introduction of Other Hormone into Peripheral Vein, Percutaneous Approach (ICD-10-PCS; principal; 2023-06-08)
PROC: 10E0XZZ Delivery of Products of Conception, External Approach (ICD-10-PCS; 2023-06-10)
PROC: 10H07YZ Insertion of Other Device into Products of Conception, Via Natural or Artificial Opening (ICD-10-PCS; 2023-06-10)
DX: O42.12 Full-term premature rupture of membranes, onset of labor more than 24 hours following rupture (principal); Z37.0 Single live birth; O77.0 Labor and delivery complicated by meconium in amniotic fluid; O48.0 Post-term pregnancy; Z3A.41 41 weeks gestation of pregnancy; O99.893 Other specified diseases and conditions complicating puerperium; R33.9 Retention of urine, unspecified; O62.8 Other abnormalities of forces of labor
CPT/HCPCS: 59409; 85025; 86850; 86900; 86901; 86920; A9270; J7120